=== PATIENT | female | born 1940 | race Caucasian/White ===

== ENCOUNTER 2018-02-21 05:40 | Inpatient (IN) | payer BC ==
[2018-02-21] MEDS: LACTATED RINGER'S 1,000 ML IV (06:00)
[2018-02-21] MEDS ORDERED: DEXAMETHASONE 4 MG/ML 1 ML INJ IV (06:00)
[2018-02-21] MEDS ORDERED: CLINDAMYCIN 600 MG/D5W (PMX) 50 ML IVPB (06:00)
[2018-02-21] MEDS ORDERED: [UNRECOGNIZED DRUG - OTHER] IVPB (06:00)
[2018-02-21] MEDS ORDERED: [UNRECOGNIZED DRUG - OTHER] IVPB (06:00)
[2018-02-21] MEDS ORDERED: TRANEXAMIC ACID IVPB ×2 (06:00)
[2018-02-21] MEDS ORDERED: NS IVPB ×2 (06:00)
[2018-02-21] MEDS: ACETAMINOPHEN 1000MG/100ML IV 100 ML IVPB (06:49)
[2018-02-21] MEDS ORDERED: CLINDAMYCIN 900 MG/50 ML D5W IVPB IVPB (07:00)
[2018-02-21] MEDS ORDERED: BUPIVACAINE 0.75%/DEXT (SPINAL) 2 ML INJ (07:00)
[2018-02-21] MEDS ORDERED: NEOSTIGMINE 3 MG/3 ML SYRINGE (07:23)
[2018-02-21] MEDS ORDERED: ROCURONIUM 50 MG INJ (07:23)
[2018-02-21] MEDS ORDERED: CEFAZOLIN 1 GM INJ (07:23)
[2018-02-21] MEDS ORDERED: PROPOFOL 20 ML (07:23)
[2018-02-21] MEDS ORDERED: GLYCOPYRROLATE 0.4 MG INJ (07:23)
[2018-02-21] MEDS ORDERED: FENTAnyl 50 MCG/ML VIAL (07:24)
[2018-02-21] MEDS ORDERED: DEXAMETHASONE 4 MG/ML 1 ML INJ (07:24)
[2018-02-21] MEDS ORDERED: MIDAZOLAM 1 MG/ML 2 ML INJ (07:24)
[2018-02-21] MEDS ORDERED: ONDANSETRON 4 MG INJ (07:24)
[2018-02-21] MEDS ORDERED: morphine SULFATE/PF (10 MG/10 ML) INJ (07:25)
[2018-02-21] MEDS ORDERED: BISACODYL 10 MG SUPP PR (07:30)
[2018-02-21] MEDS ORDERED: MAGNESIUM HYDROXIDE 30ML CUP PO (07:30)
[2018-02-21] MEDS ORDERED: SENNA/DOCUSATE NA (8.6MG/50MG) TAB PO (07:30)
[2018-02-21] MEDS ORDERED: NA PHOSPHATE/BIPHOS 133 ML ENEMA PR (07:30)
[2018-02-21] MEDS ORDERED: BETHANECHOL 25 MG TAB PO (07:30)
[2018-02-21] MEDS ORDERED: NACL 0.9% 3 ML SYG IV (07:30)
[2018-02-21] MEDS ORDERED: oxyCODONE 5 MG TAB PO (07:30)
[2018-02-21] MEDS ORDERED: CEFAZOLIN 1 GM/50 ML (PMX) 50 ML IVPB (07:30)
[2018-02-21] MEDS ORDERED: NALOXONE (0.4 MG/ML) INJ IV ×2 (07:30→09:30)
[2018-02-21] MEDS ORDERED: EPINEPHrine 1 MG INJ (07:41)
[2018-02-21] MEDS: BACITRACIN 50000 UNITS INJ (08:25)
[2018-02-21] MEDS: POLYMYXIN B 500000 UNIT INJ (08:25)
[2018-02-21] MEDS ORDERED: SUGAMMADEX SODIUM 200 MG/2 ML VIAL IV (09:28)
[2018-02-21] MEDS ORDERED: morphine (1 MG/ML) 10ML SYRINGE IV ×3 (09:30)
[2018-02-21] MEDS ORDERED: hydrALAzine 20 MG INJ IV (09:30)
[2018-02-21] MEDS ORDERED: ALBUTEROL 0.083% (NEB) 2.5 MG/3 ML AMP HHN (09:30)
[2018-02-21] MEDS ORDERED: TRIMETHOBENZAMIDE 100 MG/ML VIAL IM (09:30)
[2018-02-21] MEDS ORDERED: ONDANSETRON 4 MG INJ IV (09:30)
[2018-02-21] MEDS ORDERED: FENTAnyl 50 MCG/ML VIAL IV ×3 (09:30)
[2018-02-21] MEDS ORDERED: IPRATROPIUM (NEB) 0.5 MG/2.5 ML AMP HHN (09:30)
[2018-02-21] MEDS ORDERED: EPHEDrine SULFATE 50 MG/5 ML SYG IV (09:30)
[2018-02-21] MEDS ORDERED: MEPERIDINE 25 MG INJ IV (09:30)
[2018-02-21] MEDS ORDERED: MIDAZOLAM 1 MG/ML 2 ML INJ IV (09:30)
[2018-02-21] MEDS ORDERED: DIPHENHYDRAMINE 50 MG INJ IV (09:30)
[2018-02-21] MEDS ORDERED: LABETALOL HCL 20MG INJ IV (09:30)
[2018-02-21] MEDS: ASPIRIN (EC) 325 MG TAB PO (10:00)
[2018-02-21] MEDS: DOCUSATE SODIUM 100 MG CAP PO (10:00)
[2018-02-21] MEDS: DIPHENHYDRAMINE 50 MG INJ IV (10:21)
[2018-02-21] MEDS ORDERED: ALBUTEROL/IPRATROPIUM (NEB) 3 ML AMP HHN (12:30)
[2018-02-21] MEDS: SOD CHLORIDE 0.9% 1,000 ML IV ×2 (12:40→17:20)
[2018-02-21] MEDS: ONDANSETRON 4 MG INJ IV ×3 (13:30→19:30)
[2018-02-21] MEDS: CEPASTAT LOZENGE MT (17:17)
[2018-02-21] MEDS: VANCOMYCIN 1 GM (PMX) 250 ML IVPB (17:17)
[2018-02-21] MEDS: GABAPENTIN 300 MG CAP PO (20:21)
[2018-02-21] MEDS: ATORVASTATIN 10 MG TAB PO (20:21)
[2018-02-21] MEDS: GABAPENTIN 400 MG CAP PO (20:50)
[2018-02-22] MEDS: ONDANSETRON 4 MG INJ IV (01:30)
[2018-02-22] MEDS: VANCOMYCIN 1 GM (PMX) 250 ML IVPB (05:21)
[2018-02-22] MEDS: PANTOPRAZOLE (EC) 40 MG TAB PO (05:21)
[2018-02-22 05:42] LABS: ADD MAN DIFF? NO
[2018-02-22 05:51] LABS: BASOPHILS % 0.1 % (0.0-2.0); HEMATOCRIT 30.6 % (37.0-47.0); HEMOGLOBIN 9.8 g/dl (12.0-16.0); LYMPHOCYTES # 1.2 10^3/ul (0.8-2.9); MEAN CORPUSCULAR HEMOGLOBIN 28.8 pg (29.0-33.0); MEAN PLATELET VOLUME 9.3 fl (7.4-10.4); MONOCYTE # 0.9 10^3/ul (0.3-0.9); MONOCYTES % 6.1 % (0.0-11.0); NEUTROPHIL # 12.5 10^3/ul (1.6-7.5); NEUTROPHILS % 85.1 % (39.0-77.0); PLATELET COUNT 263 10^3/UL (140-415); RED CELL DISTRIBUTION WIDTH 14.6 % (11.5-14.5)
[2018-02-22 05:51] LABS: WHITE BLOOD COUNT 14.7 10^3/ul (4.8-10.8)
[2018-02-22 06:08] LABS: ANION GAP 13 (8-16); BLOOD UREA NITROGEN 19 mg/dl (7-20); CALCIUM 7.8 mg/dl (8.4-10.2); CARBON DIOXIDE 23 mmol/L (21-31); CHLORIDE 105 mmol/L (97-110); CREATININE 0.73 mg/dl (0.44-1.00); GLUCOSE 168 mg/dl (70-220); POTASSIUM 3.7 mmol/L (3.5-5.1); SODIUM 137 mmol/L (135-144)
[2018-02-22 06:17] LABS: MAGNESIUM 1.9 mg/dl (1.7-2.5)
[2018-02-22 06:17] LABS: CHOL/HDL RATIO 2.3 RATIO; CHOLESTEROL 103 mg/dl (100-200); HDL CHOLESTEROL 43 mg/dl (33-92); LDL CHOLESTEROL,CALCULATED 44 mg/dl; TRIGLYCERIDES 78 mg/dl (0-149)
[2018-02-22 08:01] LABS: FREE T4 (FREE THYROXINE) 0.79 ng/dl (0.78-2.44)
[2018-02-22 08:02] LABS: FREE T3 1.86 pg/ml (2.77-5.27)
[2018-02-22] MEDS: HYDROCHLOROTHIAZIDE 25 MG TAB PO (08:55)
[2018-02-22] MEDS: oxyCODONE 5 MG TAB PO ×2 (08:55→19:59)
[2018-02-22] MEDS: FERROUS FUMARATE (SR) TAB PO ×2 (08:56→20:32)
[2018-02-22] MEDS: CELECOXIB 200 MG CAP PO ×2 (08:56→20:34)
[2018-02-22] MEDS: DOCUSATE SODIUM 100 MG CAP PO ×2 (08:56→20:33)
[2018-02-22] MEDS: SOLIFENACIN 5 MG TAB PO (08:56)
[2018-02-22] MEDS: ASPIRIN (EC) 325 MG TAB PO (08:56)
[2018-02-22] MEDS: GABAPENTIN 400 MG CAP PO ×2 (12:26→20:33)
[2018-02-22] MEDS: BETAMETHASONE/CLOTRIMAZOLE 15 GM CR TOP ×2 (16:30→20:31)
[2018-02-22] MEDS: HYDROCORTISONE 0.5% 28.35 GM CR TOP ×2 (16:30→20:31)
[2018-02-22] MEDS: ATORVASTATIN 10 MG TAB PO (20:33)
[2018-02-23 05:14] LABS: ADD MAN DIFF? NO
[2018-02-23 05:15] LABS: WHITE BLOOD COUNT 15.2 10^3/ul (4.8-10.8)
[2018-02-23 05:15] LABS: BASOPHIL # 0.1 10^3/ul (0.0-0.1); BASOPHILS % 0.4 % (0.0-2.0); EOSINOPHILS # 0.2 10^3/ul (0.0-0.5); EOSINOPHILS % 1.6 % (0.0-7.0); HEMATOCRIT 33.5 % (37.0-47.0); HEMOGLOBIN 10.5 g/dl (12.0-16.0); LYMPHOCYTES % 19.8 % (15.0-51.0); MEAN CORPUSCULAR HEMOGLOBIN 28.5 pg (29.0-33.0); MEAN CORPUSCULAR HGB CONC 31.3 g/dl (32.0-37.0); MEAN PLATELET VOLUME 9.1 fl (7.4-10.4); MONOCYTES % 6.3 % (0.0-11.0); NEUTROPHIL # 10.7 10^3/ul (1.6-7.5); NEUTROPHILS % 70.8 % (39.0-77.0); PLATELET COUNT 257 10^3/UL (140-415); RED BLOOD COUNT 3.68 10^6/ul (4.20-5.40); RED CELL DISTRIBUTION WIDTH 14.9 % (11.5-14.5)
[2018-02-23 05:52] LABS: ANION GAP 9 (8-16); BLOOD UREA NITROGEN 17 mg/dl (7-20); CALCIUM 8.3 mg/dl (8.4-10.2); CARBON DIOXIDE 29 mmol/L (21-31); CHLORIDE 109 mmol/L (97-110); CREATININE 0.87 mg/dl (0.44-1.00); GLUCOSE 106 mg/dl (70-220); POTASSIUM 3.7 mmol/L (3.5-5.1); SODIUM 143 mmol/L (135-144)
[2018-02-23] MEDS: PANTOPRAZOLE (EC) 40 MG TAB PO (06:33)
[2018-02-23] MEDS: oxyCODONE 5 MG TAB PO ×2 (06:35→10:46)
[2018-02-23] MEDS: DOCUSATE SODIUM 100 MG CAP PO (09:00)
[2018-02-23] MEDS: FERROUS FUMARATE (SR) TAB PO (09:00)
[2018-02-23] MEDS: GABAPENTIN 400 MG CAP PO (10:38)
[2018-02-23] MEDS: ASPIRIN (EC) 325 MG TAB PO (10:38)
[2018-02-23] MEDS: CELECOXIB 100 MG CAP PO (10:38)
[2018-02-23] MEDS: SOLIFENACIN 5 MG TAB PO (10:39)
[2018-02-23] MEDS: HYDROCORTISONE 0.5% 28.35 GM CR TOP (10:39)
[2018-02-23] MEDS: BETAMETHASONE/CLOTRIMAZOLE 15 GM CR TOP (10:39)
[2018-02-23] MEDS: HYDROCHLOROTHIAZIDE 25 MG TAB PO (10:39)
== END 2018-02-23 11:40 | DRG 470 ==
LOC: REC 05:40 → MS1 11:26
PROVIDERS: Orthopaedic Surgery
PROC: 0SRB04A Replacement of Left Hip Joint with Ceramic on Polyethylene Synthetic Substitute, Uncemented, Open Approach (ICD-10-PCS; principal; 2018-02-21 07:30)
DX: M16.12 Unilateral primary osteoarthritis, left hip (principal); Z68.41 Body mass index [BMI] 40.0-44.9, adult; J44.9 Chronic obstructive pulmonary disease, unspecified; I10 Essential (primary) hypertension; E78.5 Hyperlipidemia, unspecified; E11.40 Type 2 diabetes mellitus with diabetic neuropathy, unspecified; N32.81 Overactive bladder; E66.01 Morbid (severe) obesity due to excess calories
CPT/HCPCS: 73530; 80048; 80061; 83735; 84439; 84443; 84481; 85025; 86850; 86900; 86901; 87081; 87086; 88304; 88311; 97110; 97116; 97163; 97167; 97530; 97535